=== PATIENT | female | born 1970 | race Caucasian/White ===

== ENCOUNTER 2024-10-25 13:39 | Emergency (ER) | payer BC ==
[~2024-10-25] VITALS: Ht 162.6 cm; Wt 63.5 kg
[2024-10-25 13:49] VITALS: TEMP 98.5
[2024-10-25] MEDS ORDERED: ACETAMINOPHEN ES 500 MG TABLET ONE (14:35)
[2024-10-25] MEDS: IV NS 0.9% 1,000 ML BAG IV ONE (14:43)
[2024-10-25] MEDS: ACETAMINOPHEN ES 500 MG TABLET PO ONE (14:44)
[2024-10-25 15:05] LABS: PLATELET COUNT (AUTO) 257 K/uL (150-450); RED BLOOD CELL COUNT(AUTO) 4.02 MIL/uL (4.0-5.2); RED CELL DISTRIBUTION WIDTH 13.1 % (11.5-15.0); WHITE BLOOD COUNT (AUTO) 6.9 K/uL (4.3-11.0)
[2024-10-25 15:19] LABS: CALCIUM, SERUM 8.9 mg/dL (8.5-10.1); CREATININE 0.8 mg/dL (0.6-1.3); SODIUM SERUM 143 mmol/L (136-145); UREA NITROGEN, BLOOD 12 mg/dL (7-18)
[2024-10-25 17:49] VITALS: BP 126/70; O2SAT 99
== END 2024-10-25 17:50 | disposition home or self-care (01) ==
LOC: ER 14:03
DX: R07.89 Other chest pain (principal); R00.2 Palpitations; R51.9 Headache, unspecified
CPT/HCPCS: 99285; 96360; 70450; 71045; 93005 ×2; 85025; 80048; 36415; 84484 ×2; J7030